=== PATIENT | female | born 2000 | race Caucasian/White ===

== ENCOUNTER 2019-03-12 16:59 | Emergency (ER) | payer SELFPAY ==
[~2019-03-12] VITALS: Ht 160 cm; Wt 73.9 kg
[2019-03-12 17:08] VITALS: Ht 160 cm; Wt 73.9 kg
[2019-03-12 18:03] LABS: BASOPHIL % 0.3 % (0-2); PLATELET COUNT 311 x10^3mcL (130-400); RED CELL DISTRIBUTION WIDTH 12.9 % (11.5-14.5)
[2019-03-12 18:08] LABS: CALCIUM 8.8 mg/dL (8.5-10.1); CARBON DIOXIDE 30.9 mmol/L (21-32); CHLORIDE SERUM 104 mmol/L (98-107); CREATININE SERUM 0.7 mg/dL (0.6-1.0); GFR1 > 60 mL/min; GLUCOSE SERUM 96 mg/dL (74-106); POTASSIUM SERUM 3.5 mmol/L (3.5-5.1); SODIUM SERUM 142 mmol/L (136-145)
[2019-03-12 18:12] LABS: ALKALINE PHOSPHATASE 88 U/L (46-116); ALT/SGPT 19 U/L (14-59); AST/SGOT 15 U/L (15-37); TOTAL PROTEIN, SERUM 7.7 g/dL (6.4-8.2)
[2019-03-12 19:05] VITALS: BP 111/71
== END 2019-03-12 19:05 | disposition home or self-care (01) ==
LOC: ED 16:59
PROVIDERS: Emergency Medicine
DX: R51 Headache (principal); R42 Dizziness and giddiness
CPT/HCPCS: 36415